=== PATIENT | female | born 1930 | race African-American/Black ===

== ENCOUNTER → 2017-04-05 | Outpatient (CLI) | payer MEDICARE, OTHER ==
[~2017-04-05] MED LIST: BACTRIM DS TABL1 TA1 PO
--- NOTE | ~2017-04-05 | EKG ---
PATIENT: GERMAN DENISE UNIT #: [id number] Ventricular Rate: 71 BPM Atrial Rate: 71 BPM P-R Interval: 156 ms QRS Duration: 128 ms Q-T Interval: 396 ms QTC Calculation(Bezet): 430 ms P [place]: 51 degrees Calculated R [place]: 5 degrees Calculated T [place]: 47 degrees Diagnosis Line: Normal sinus rhythm Diagnosis Line: Left bundle branch block Diagnosis Line: Abnormal ECG Diagnosis Line: When compared with ECG of 02-DEC-2011 17:09, Diagnosis Line: Left bundle branch block is now Present Diagnosis Line: Minimal criteria for Anterior infarct are no Diagnosis Line: longer Present Diagnosis Line: Confirmed by DAYDAY PAREDES MD ([id number]) on 04/05/2017 Diagnosis Line: 5:04:00 PM INTERPRETING MD: LENA LEON
== END | disposition home or self-care (01) ==
LOC: CEKG 10:00 → CECH 10:00
DX: Z01.810 Encounter for preprocedural cardiovascular examination (principal); R94.31 Abnormal electrocardiogram [ECG] [EKG]; E10.40 Type 1 diabetes mellitus with diabetic neuropathy, unspecified; I31.3 Pericardial effusion (noninflammatory)
CPT/HCPCS: 93005; 93306